=== PATIENT | female | born 1990 | race African-American/Black ===

== ENCOUNTER 2024-04-18 10:23 | Emergency (ER) | payer OTHER ==
[~2024-04-18] VITALS: Ht 160 cm; Wt 108.0 kg
[~2024-04-18 10:23] MED LIST: LABETALOL HCL100 MG PO
[2024-04-18 10:31] VITALS: RESP 18; TEMP 98.4
[2024-04-18 10:58] LABS: HEMATOCRIT 40.2 % (34.2-44.1); HEMOGLOBIN 13.6 g/dL (12.0-16.0); LYMPHOCYTES # (AUTO) 0.8 (1.0-3.2); LYMPHOCYTES % 14.1 % (18.0-39.1); MEAN CORPUSCULAR HGB CONC 33.8 g/dL (31-35); MEAN CORPUSCULAR VOLUME 94.6 fL (81-99); MONOCYTES # (AUTO) 0.2 (0.2-0.8); MONOCYTES % 3.4 % (4.4-11.3); NEUTROPHILS # (AUTO) 4.8 (2.1-6.9); NEUTROPHILS % 82.3 % (38.7-80.0); PLATELET COUNT 306 x10e3/uL (140-360); RED BLOOD COUNT 4.25 x10e6/uL (3.6-5.1); RED CELL DISTRIBUTION WIDTH 11.8 % (11.7-14.4); WHITE BLOOD COUNT 5.83 x10e3/uL (4.8-10.8)
[2024-04-18] MEDS: LABETALOL HCL 5 MG/ML 20ML VIAL IV STA (10:59)
[2024-04-18] MEDS: SODIUM CHLORIDE 0.9% 1000ML 1,000 ML IV STA (11:00)
[2024-04-18] MEDS: KETOROLAC TROMETHAMINE 30 MG/ML VIAL IV STA (11:00)
[2024-04-18] MEDS: ONDANSETRON HCL INJ 2MG/ML 2ML 2 MG/ML VIAL IV STA (11:00)
[2024-04-18 11:05] LABS: BILIRUBIN,URINE NEGATIVE (NEGATIVE); CLARITY,URINE CLEAR (CLEAR); COLOR,URINE YELLOW (YELLOW); GLUCOSE, URINE NEGATIVE (NEGATIVE); KETONES,URINE NEGATIVE (NEGATIVE); LEUKOCYTE ESTERASE ,URINE NEGATIVE (NEGATIVE); NITRITE,URINE NEGATIVE (NEGATIVE); PH,URINE 7.5 (5 - 7); PROTEIN,URINE DIPSTICK NEGATIVE (NEGATIVE); URINE UROBILINOGEN 0.2 mg/dL (0.2 - 1)
[2024-04-18 11:09] VITALS: PULSE 69
[2024-04-18 11:26] LABS: ALANINE AMINOTRANSFERASE 213 IU/L (0-55); ALBUMIN 4.3 g/dL (3.5-5.0); ALKALINE PHOSPHATASE 88 IU/L (40-150); BILIRUBIN,TOTAL 1.3 mg/dL (0.2-1.2); BLOOD UREA NITROGEN 10 mg/dL (7-26); BUN/CREATININE RATIO 13 (6-25); CALCIUM 9.3 mg/dL (8.4-10.2); CARBON DIOXIDE 24 mmol/L (22-29); CHLORIDE 104 mmol/L (98-107); CREATININE, SERUM 0.77 mg/dL (0.57-1.11); EST GLOMERULAR FILTRATION RATE 104 ML/MIN (>=60); GLUCOSE 112 mg/dL (74-118); MAGNESIUM 1.8 MG/DL (1.3-2.1); SODIUM 139 mmol/L (136-145); TOTAL PROTEIN 8.4 g/dL (6.5-8.1)
[2024-04-18 11:34] LABS: TROPONIN I < 0.001 ng/mL (0-0.300)
[2024-04-18 11:41] LABS: BACTERIA,URINE RARE /HPF; EPITHELIAL CELLS,URINE FEW /LPF; RBC,URINE 0-5 /HPF (0-5); WBC,URINE (MAN) 0-5 /HPF (0-5)
[2024-04-18] MEDS ORDERED: IOPAMIDOL 370 MG/ML 100 ML INFUS..BTL INJ ONE (12:02)
[2024-04-18 13:07] VITALS: BP 154/96; PULSE 81; RESP 17; O2SAT 100
[2024-04-18] MEDS ORDERED: DICYCLOMINE HCL20 MG PO (13:07)
[2024-04-18] MEDS ORDERED: ONDANSETRON ODT4 MG PO (13:07)
== END 2024-04-18 13:31 | disposition home or self-care (01) ==
LOC: ER 10:25
DX: R11.2 Nausea with vomiting, unspecified (principal); K80.20 Calculus of gallbladder without cholecystitis without obstruction; N83.201 Unspecified ovarian cyst, right side; R10.30 Lower abdominal pain, unspecified; I10 Essential (primary) hypertension; E78.5 Hyperlipidemia, unspecified; G40.909 Epilepsy, unspecified, not intractable, without status epilepticus
CPT/HCPCS: 36415; 74177; 80053; 81001; 83735; 84484; 84702; 85025; 99284; J1885; J2405; J2470; J3490; J7030; Q9967